=== PATIENT | male | born 1985 | race African-American/Black ===

== ENCOUNTER 2016-11-16 10:31 | Emergency (ER) | payer OTHER ==
[2016-11-16 10:38] VITALS: TEMP 97
--- NOTE | 2016-11-16 11:44 | ED ---
General Adult HPI - General Chief complaint: Recheck/Abnormal Lab/Rx Stated complaint: FACIAL PAIN Time Seen by Provider: 11/16/16 10:43 Source: patient, RN notes reviewed, old records reviewed Mode of arrival: ambulatory Limitations: no limitations - History of Present Illness Initial comments: This is a 31-year-old male to the ER for evaluation. This patient presents in regards to evaluation of recheck regarding facial mass. He states he had surgery for facial mass about 2013. Patient is currently return to ER for evaluation of recurrence of mass, patient has no symptoms, denies any swelling or dysphagia, no pain with swallowing or difficulty swallowing. Patient states his last couple days been concerned about his lack of follow-up patient is concern about coming back. He denies having any symptoms regarding this. Does admit about anxiety regarding the issue - Related Data Previous Rx's Medication Instructions Recorded Naproxen 500 mg PO Q12HR PRN #10 tab 02/06/16 Allergies Allergy/AdvReac Type Severity Reaction Status Date / Time No Known Allergies Allergy Verified 02/06/16 19:14 Review of Systems ROS Statement: Those systems with pertinent positive or pertinent negative responses have been documented in the HPI. ROS Other: All systems not noted in ROS Statement are negative. 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 Absent: scleral icterus, conjunctival injection, periorbital swelling ENT exam: Present: normal exam, mucous membranes moist Neck exam: Present: normal inspection. Absent: tenderness, meningismus, lymphadenopathy Respiratory exam: Present: normal lung sounds bilaterally. Absent: respiratory distress, wheezes, rales, rhonchi, stridor Cardiovascular Exam: Present: regular rate, normal rhythm, normal heart sounds. Absent: systolic murmur, diastolic murmur, rubs, gallop, clicks GI/Abdominal exam: Present: soft, normal bowel sounds. Absent: distended, tenderness, guarding, rebound, rigid Extremities exam: Present: normal inspection, full ROM, normal capillary refill. Absent: tenderness, pedal edema, joint swelling, calf tenderness Back exam: Present: normal inspection Neurological exam: Present: alert, oriented X3, CN II-XII intact Psychiatric exam: Present: normal affect, normal mood Skin exam: Present: warm, dry, intact, normal color. Absent: rash Course Vital Signs 11/16/16 10:35 Temperature 97.0 F L Pulse Rate 74 Respiratory 17 Rate Blood Pressure 139/88 O2 Sat by Pulse 98 Oximetry - Reevaluation(s) Reevaluation #1: 11/16/16 11:41 Patient is advised regarding normal CAT scan, follow-up with surgeon in the future as directed Medical Decision Making - Medical Decision Making 31 male to the ER with anxiety, concern over lack of follow-up postop surgery. This time patient has a recurrence. Patient will be discharged home - Radiology Data Radiology results: report reviewed (CT soft tissue neck is negative for acute disease), image reviewed Disposition Clinical Impression: Anxiety about health, Postoperative follow-up Disposition: HOME SELF-CARE Condition: Good Instructions: Normal Exam (ED) Referrals: None,Stated [Primary Care Provider] - 1-2 days
--- NOTE | 2016-11-16 12:28 | CT ---
EXAMINATION TYPE: CT soft tissue neck wo con DATE OF EXAM: 11/16/2016 HISTORY: Dysphasia COMPARISON: NONE CT DLP: 437.4 mGycm. Automated Exposure Control for Dose Reduction was Utilized. TECHNIQUE: CT scan of the neck is performed without contrast. FINDINGS: Lung apices are clear. Lack of IV contrast limits assessment for mass. Exam is significantl y limited. Artifact also noted which limits the exam. Parotid glands demonstrate surgical clips on the left whic h likely related to patient's history of previous surgery. Overall attenuation of the parotid glands appear symmetric bilaterally. There is asymmetry to the oropharynx on the left may be related to the uvula. Direct visualization could BE obtained. Visualized intraorbital and intracranial structures are symmetric. Assessment for adenopathy markedly limited due to lack of contrast. Shotty adenopathy scattered throughout the soft tissues of the neck Nasopharynx symmetric. Changes of chronic ethmoidal sinusitis noted. Airways patent. Vocal cords have a normal appearance. Residual thymic tissue in the anterior mediasti num. IMPRESSION: 1. Asymmetry of the oropharynx on the left correlate with direct visualization to exclude mucosal abn ormality. 2. Postsurgical changes involving the soft tissues of the left neck. Assessment for new mass without contrast as severely limited. Follow-up exam with contrast recommended or MRI. 3. Shotty adenopathy throughout the neck with the largest lymph node in the submental space on the le ft measuring 9 mm in short axis.
[2016-11-16 12:53] VITALS: BP 125/88; PULSE 66; RESP 18
== END 2016-11-16 12:52 | disposition home or self-care (01) ==
LOC: EC 10:31
DX: F41.9 Anxiety disorder, unspecified (principal); Z09 Encounter for follow-up examination after completed treatment for conditions other than malignant neoplasm; Z87.891 Personal history of nicotine dependence; Z98.890 Other specified postprocedural states
CPT/HCPCS: 70490; 99284

== ENCOUNTER 2017-06-12 10:23 | Emergency (ER) | payer OTHER ==
[2017-06-12 10:28] VITALS: PULSE 63; RESP 18
[2017-06-12] MEDS ORDERED: SODIUM CHLORIDE 0.9% 500 ML IV STA (10:39)
[2017-06-12] MEDS ORDERED: KETOROLAC 30 MG/ML 1 ML VIAL IVP STA ×2 (10:39→12:33)
[2017-06-12] MEDS ORDERED: SODIUM CHLORIDE 0.9% 1,000 ML IV STA ×2 (10:39→11:49)
--- NOTE | 2017-06-12 10:43 | ED ---
Abdominal Pain HPI - General Chief Complaint: Abdominal Pain Stated Complaint: ABDOMINAL PAIN Time Seen by Provider: 06/12/17 10:33 Source: patient, RN notes reviewed Mode of arrival: ambulatory Limitations: no limitations - History of Present Illness Initial Comments: This is a 31-year-old male with a benign past medical history states he started developing mid and upper abdominal pain 3 days ago. He states he was at work yesterday and got worse and is here today. He states it is achy-type pain midabdominal 7/10 severity. Nothing seems to make it better nothing seems to make it worse it is associated with sweats no nausea or vomiting. He's had no trouble with urination no bowel movement issues. No family history of gallbladder disease ulcers her appendix. He's had no prior abdominal surgeries. No history kidney stones. He does state that in the past he had a one-day episode similar to this but it resolved. MD Complaint: abdominal pain - Related Data Previous Rx's Medication Instructions Recorded Dicyclomine [Bentyl] 10 mg PO TID #10 capsule 06/12/17 Ibuprofen 800 mg PO Q6HR PRN #20 tablet 06/12/17 Allergies Allergy/AdvReac Type Severity Reaction Status Date / Time No Known Allergies Allergy Verified 06/12/17 10:39 Review of Systems ROS Statement: Those systems with pertinent positive or pertinent negative responses have been documented in the HPI. ROS Other: All systems not noted in ROS Statement are negative. 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 Absent: scleral icterus, conjunctival injection, periorbital swelling ENT exam: Present: normal exam, mucous membranes moist Neck exam: Present: normal inspection. Absent: tenderness, meningismus, lymphadenopathy Respiratory exam: Present: normal lung sounds bilaterally. Absent: respiratory distress, wheezes, rales, rhonchi, stridor Cardiovascular Exam: Present: regular rate, normal rhythm, normal heart sounds. Absent: systolic murmur, diastolic murmur, rubs, gallop, clicks GI/Abdominal exam: Present: soft, tenderness (Tenderness palpation over the mid abdomen some mild right and left lower quadrant tenderness and mild suprapubic tenderness no right upper quadrant or left upper quadrant tenderness no epigastric tenderness at this time.), normal bowel sounds. Absent: distended, guarding, rebound, rigid, bruit, pulsatile mass, hernia Rectal exam: Present: deferred Extremities exam: Present: normal inspection, full ROM, normal capillary refill. Absent: tenderness, pedal edema, joint swelling, calf tenderness Back exam: Present: normal inspection, CVA tenderness (L) (Mild tenderness over the left CVA with palpation.) Neurological exam: Present: alert, oriented X3, CN II-XII intact Psychiatric exam: Present: normal affect, normal mood Skin exam: Present: warm, dry, intact, normal color. Absent: rash Course Vital Signs 06/12/17 10:25 Temperature 97.1 F L Pulse Rate 63 Respiratory 18 Rate Blood Pressure 106/53 O2 Sat by Pulse 98 Oximetry Medical Decision Making - Medical Decision Making The patient was getting improvement I did discuss the findings with him he'll be discharged on appropriate medication including anti-inflammatories and antispasmodics. He'll be given today and tomorrow off from work. He is increase his oral fluids we did discuss this. - Lab Data Result diagrams: 06/12/17 10:12 06/12/17 10:12 Lab Results 06/12/17 06/12/17 06/12/17 Range/Units 10:12 10:12 10:12 WBC 6.4 (3.8-10.6) k/uL RBC 5.05 (4.30-5.90) m/uL Hgb 15.3 (13.0-17.5) gm/dL Hct 45.9 (39.0-53.0) % MCV 90.9 (80.0-100.0) fL MCH 30.2 (25.0-35.0) pg MCHC 33.2 (31.0-37.0) g/dL RDW 12.5 (11.5-15.5) % Plt Count 161 (150-450) k/uL Neutrophils % 58 % Lymphocytes % 26 % Monocytes % 6 % Eosinophils % 6 % Basophils % 0 % Neutrophils # 3.7 (1.3-7.7) k/uL Lymphocytes # 1.7 (1.0-4.8) k/uL Monocytes # 0.4 (0-1.0) k/uL Eosinophils # 0.4 (0-0.7) k/uL Basophils # 0.0 (0-0.2) k/uL PT (9.0-12.0) sec INR (<1.2) APTT (22.0-30.0) sec Sodium 143 (137-145) mmol/L Potassium 4.7 (3.5-5.1) mmol/L Chloride 109 H (98-107) mmol/L Carbon Dioxide 22 (22-30) mmol/L Anion Gap 12 mmol/L BUN 18 (9-20) mg/dL Creatinine 0.80 (0.66-1.25) mg/dL Est GFR (CKD-EPI)AfAm >90 (>60 ml/min/1.73 sqM) Est GFR (CKD-EPI)NonAf >90 (>60 ml/min/1.73 sqM) Glucose 91 (74-99) mg/dL Plasma Lactic Acid Dany 0.8 (0.7-2.0) mmol/L Calcium 9.8 (8.4-10.2) mg/dL Total Bilirubin 0.8 (0.2-1.3) mg/dL AST 42 (17-59) U/L ALT 72 (21-72) U/L Alkaline Phosphatase 69 (38-126) U/L Total Protein 6.9 (6.3-8.2) g/dL Albumin 4.3 (3.5-5.0) g/dL Amylase 66 (30-110) U/L Lipase 156 (23-300) U/L Urine Color Urine Appearance (Clear) Urine pH (5.0-8.0) Ur Specific [place] (1.001-1.035) Urine Protein (Negative) Urine Glucose (UA) (Negative) Urine Ketones (Negative) Urine Blood (Negative) Urine Nitrite (Negative) Urine Bilirubin (Negative) Urine Urobilinogen (<2.0) mg/dL Ur Leukocyte Esterase (Negative) Urine RBC (0-5) /hpf Urine WBC (0-5) /hpf Urine Mucus (None) /hpf 06/12/17 06/12/17 Range/Units 10:12 10:47 WBC (3.8-10.6) k/uL RBC (4.30-5.90) m/uL Hgb (13.0-17.5) gm/dL Hct (39.0-53.0) % MCV (80.0-100.0) fL MCH (25.0-35.0) pg MCHC (31.0-37.0) g/dL RDW (11.5-15.5) % Plt Count (150-450) k/uL Neutrophils % % Lymphocytes % % Monocytes % % Eosinophils % % Basophils % % Neutrophils # (1.3-7.7) k/uL Lymphocytes # (1.0-4.8) k/uL Monocytes # (0-1.0) k/uL Eosinophils # (0-0.7) k/uL Basophils # (0-0.2) k/uL PT 9.8 (9.0-12.0) sec INR 1.0 (<1.2) APTT 22.9 (22.0-30.0) sec Sodium (137-145) mmol/L Potassium (3.5-5.1) mmol/L Chloride (98-107) mmol/L Carbon Dioxide (22-30) mmol/L Anion Gap mmol/L BUN (9-20) mg/dL Creatinine (0.66-1.25) mg/dL Est GFR (CKD-EPI)AfAm (>60 ml/min/1.73 sqM) Est GFR (CKD-EPI)NonAf (>60 ml/min/1.73 sqM) Glucose (74-99) mg/dL Plasma Lactic Acid Dany (0.7-2.0) mmol/L Calcium (8.4-10.2) mg/dL Total Bilirubin (0.2-1.3) mg/dL AST (17-59) U/L ALT (21-72) U/L Alkaline Phosphatase (38-126) U/L Total Protein (6.3-8.2) g/dL Albumin (3.5-5.0) g/dL Amylase (30-110) U/L Lipase (23-300) U/L Urine Color Yellow Urine Appearance Clear (Clear) Urine pH 5.5 (5.0-8.0) Ur Specific [place] 1.027 (1.001-1.035) Urine Protein Trace H (Negative) Urine Glucose (UA) Negative (Negative) Urine Ketones Negative (Negative) Urine Blood Trace H (Negative) Urine Nitrite Negative (Negative) Urine Bilirubin Negative (Negative) Urine Urobilinogen <2.0 (<2.0) mg/dL Ur Leukocyte Esterase Negative (Negative) Urine RBC 1 (0-5) /hpf Urine WBC 2 (0-5) /hpf Urine Mucus Few H (None) /hpf - Radiology Data Radiology results: report reviewed (I did review all the imaging and reports evidence of a ileus possibly no other acute findings. I CAT scan no findings other than that of enteritis), image reviewed Disposition Clinical Impression: Enteritis, Abdominal pain Disposition: HOME SELF-CARE Condition: Good Instructions: Abdominal Pain (ED), Enteritis (ED) Prescriptions: Dicyclomine [Bentyl] 10 mg PO TID #10 capsule Ibuprofen 800 mg PO Q6HR PRN #20 tablet PRN Reason: Pain Referrals: None,Stated [Primary Care Provider] - 1-2 days
[2017-06-12 11:09] LABS: Basophils % (A) 0 %; Eosinophils # (A) 0.4 k/uL (0-0.7); Eosinophils % (A) 6 %; HCT 45.9 % (39.0-53.0); HGB 15.3 gm/dL (13.0-17.5); Lymphocytes # (A) 1.7 k/uL (1.0-4.8); Lymphocytes % (A) 26 %; MCH 30.2 pg (25.0-35.0); MCHC 33.2 g/dL (31.0-37.0); MCV 90.9 fL (80.0-100.0); Mean Platelet Volume 9.2; Monocytes # (A) 0.4 k/uL (0-1.0); Monocytes % (A) 6 %; Neutrophils # (A) 3.7 k/uL (1.3-7.7); Neutrophils % (A) 58 %; Platelet Count 161 k/uL (150-450); RBC 5.05 m/uL (4.30-5.90); RDW 12.5 % (11.5-15.5); WBC 6.4 k/uL (3.8-10.6)
[2017-06-12 11:11] LABS: Appearance,Urine Clear (Clear); Bilirubin,Urine Negative (Negative); Blood,Urine Trace (Negative); Color,Urine Yellow; Glucose,Urine (UA) Negative (Negative); Ketones,Urine Negative (Negative); Leukocyte Esterase,Urine Negative (Negative); Mucus,Urine Few /hpf; Nitrite,Urine Negative (Negative); PH, Urine 5.5 (5.0-8.0); Protein,Urine Trace (Negative); RBC,Urine 1 /hpf (0-5); Specific Gravity,Urine 1.027 (1.001-1.035); Urobilinogen,Urine <2.0 mg/dL (<2.0); WBC,Urine 2 /hpf (0-5)
[2017-06-12 11:13] LABS: Partial Thromboplastin Time 22.9 sec (22.0-30.0); Prothrombin Time 9.8 sec (9.0-12.0)
[2017-06-12 11:15] LABS: ALT 72 U/L (21-72); AST 42 U/L (17-59); Albumin 4.3 g/dL (3.5-5.0); Alkaline Phosphatase 69 U/L (38-126); Amylase 66 U/L (30-110); Anion Gap 12 mmol/L; Blood Urea Nitrogen 18 mg/dL (9-20); Calcium 9.8 mg/dL (8.4-10.2); Carbon Dioxide 22 mmol/L (22-30); Chloride 109 mmol/L (98-107); Glucose 91 mg/dL (74-99); Lipase 156 U/L (23-300); Potassium 4.7 mmol/L (3.5-5.1); Sodium 143 mmol/L (137-145); Total Bilirubin 0.8 mg/dL (0.2-1.3); Total Protein 6.9 g/dL (6.3-8.2)
--- NOTE | 2017-06-12 11:24 | XR ---
EXAMINATION TYPE: XR abdomen acute w cxr DATE OF EXAM: 06/12/2017 COMPARISON: Prior chest x-ray 02/06/2016 HISTORY: Abdominal pain, nausea and vomiting and diarrhea TECHNIQUE: Supine, upright, and frontal chest x-ray views of the abdomen and chest are obtained. FINDINGS: There is no evidence for pneumoperitoneum. Chest x-ray shows a stable appearance. There are air-fluid levels without bowel distention. No mass effects are seen. No unusual calcifications. IMPRESSION: Findings may represent underlying ileus or enteritis, follow-up as indicated.
--- NOTE | 2017-06-12 12:18 | CT ---
EXAMINATION TYPE: CT abdomen pelvis wo con DATE OF EXAM: 06/12/2017 COMPARISON: Plain film same date HISTORY: Patient complains of left flank pain, nausea, vomiting, diarrhea, and constipation x4 days. CT DLP: 233.6 mGycm Automated exposure control for dose reduction was used. TECHNIQUE: Helical acquisition of images from the lung bases through the pelvis. FINDINGS: lack of contrast and paucity of intra-abdominal fat could compromise sensitivity. LUNG BASES: No significant abnormality is appreciated. AORTA: No significant abnormality is appreciated. LIVER/GB: No significant abnormality is appreciated. PANCREAS: No significant abnormality is seen. SPLEEN: No significant abnormality is seen. ADRENALS: No significant abnormality is seen. KIDNEYS: Some mild increased density centrally within the kidney suggests medullary sponge kidney, th ere is no evident hydronephrosis or ureteral calcification. REPRODUCTIVE ORGANS: No significant abnormality is seen. URINARY BLADDER: No significant abnormality is seen. BOWEL: Fluid-filled loops of small and large bowel are scattered within the abdomen. Appendicitis is not evident. FREE AIR: No Free Air is visible. ASCITES: None visible. PELVIC ADENOPATHY: None visualized. RETROPERITONEAL ADENOPATHY: No Retroperitoneal Adenopathy visible. OSSEOUS STRUCTURES: No significant abnormality is seen. IMPRESSION: FINDINGS SUGGEST ENTERITIS, ADDITIONAL FINDINGS ABOVE. FOLLOW-UP INDICATED.
[2017-06-12 13:31] VITALS: BP 112/53; TEMP 97.5
== END 2017-06-12 13:31 | disposition home or self-care (01) ==
LOC: EC 10:23
DX: K52.9 Noninfective gastroenteritis and colitis, unspecified (principal); Z85.89 Personal history of malignant neoplasm of other organs and systems; Z87.891 Personal history of nicotine dependence; Z53.8 Procedure and treatment not carried out for other reasons
CPT/HCPCS: 99284; 96374; 96361; 36415; 80053; 82150; 83605; 83690; 85025; 85610; 85730; 81001; 74022; 74176; J1885

== ENCOUNTER 2017-08-13 09:21 | Emergency (ER) | payer OTHER ==
[2017-08-13 09:26] VITALS: BP 121/67; PULSE 77; RESP 16; TEMP 98
--- NOTE | 2017-08-13 09:56 | ED ---
Abdominal Pain HPI - General Chief Complaint: Abdominal Pain Stated Complaint: Hemroids Time Seen by Provider: 08/13/17 09:27 Source: patient, RN notes reviewed Mode of arrival: ambulatory Limitations: no limitations - History of Present Illness Initial Comments: Is a 31-year-old male presents emergency Department chief complaint of hemorrhoids. Patient states she's felt them in the past and states that they' re not going away this time. He states his been 2 weeks. He states that he tried some [id number] medication with no relief. Denies any bleeding. He states that he works out regularly and strains when he lifts things at work. He states he notices it worse. He states, 7 normal at 2 are not too soft. No dysuria no hematuria. Patient states she's never been evaluated by a surgeon for these. - Related Data Previous Rx's Medication Instructions Recorded Acetaminophen-Codeine 300-30mg 1 tab PO Q4H PRN #14 tablet 08/13/17 [Tylenol #3] Hydrocortisone [Anusol-Hc] 1 applic RECTAL BID #30 gm 08/13/17 Witch Rosa [Tucks Medicated Pads] 1 each TOPICAL QID #30 med..pad 08/13/17 Allergies Allergy/AdvReac Type Severity Reaction Status Date / Time No Known Allergies Allergy Verified 08/13/17 09:32 Review of Systems ROS Statement: Those systems with pertinent positive or pertinent negative responses have been documented in the HPI. ROS Other: All systems not noted in ROS Statement are negative. 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 Absent: scleral icterus, conjunctival injection, periorbital swelling Respiratory exam: Present: normal lung sounds bilaterally. Absent: respiratory distress, wheezes, rales, rhonchi, stridor Cardiovascular Exam: Present: regular rate, normal rhythm, normal heart sounds. Absent: systolic murmur, diastolic murmur, rubs, gallop, clicks GI/Abdominal exam: Present: soft, normal bowel sounds. Absent: distended, tenderness, guarding, rebound, rigid Rectal exam: Present: hemorrhoids (There is a thrombosed hemorrhoid with no active bleeding), tenderness Skin exam: Present: warm, dry, intact, normal color. Absent: rash Course Vital Signs 08/13/17 09:23 Temperature 98.0 F Pulse Rate 77 Respiratory 16 Rate Blood Pressure 121/67 O2 Sat by Pulse 98 Oximetry Medical Decision Making - Medical Decision Making 31-year-old male presented from for hemorrhoids. Patient was given Anusol, advised to use Tucks pads and sitz bath at home. He'll follow-up with surgeon. Return parameters were discussed. Disposition Clinical Impression: Hemorrhoid Disposition: HOME SELF-CARE Condition: Stable Instructions: Hemorrhoids (ED) Additional Instructions: Please return to the Emergency Department if symptoms worsen or any other concerns. Prescriptions: Acetaminophen-Codeine 300-30mg [Tylenol #3] 1 tab PO Q4H PRN #14 tablet PRN Reason: pain Hydrocortisone [Anusol-Hc] 1 applic RECTAL BID #30 gm Witch Rosa [Tucks Medicated Pads] 1 each TOPICAL QID #30 med..pad Is patient prescribed a controlled substance at d/c from ED?: Yes If prescribed controlled substance>3 days was MAPS reviewed?: No When asked, does pt state using other controlled substances?: No Referrals: None,Stated [Primary Care Provider] - 1-2 days Ashkan Carmichael DO [Doctor of Osteopathic Medicine] - 1-2 days Time of Disposition: 10:20
== END 2017-08-13 10:24 | disposition home or self-care (01) ==
LOC: EC 09:21
DX: K64.5 Perianal venous thrombosis (principal); Z87.891 Personal history of nicotine dependence
CPT/HCPCS: 99283

== ENCOUNTER 2017-11-13 11:38 | Emergency (ER) | payer OTHER ==
[2017-11-13 11:55] VITALS: BP 124/82; PULSE 71; RESP 18; TEMP 98.2
--- NOTE | 2017-11-13 13:05 | ED ---
General Adult HPI - General Chief complaint: Urogenital Stated complaint: INFLAMATION AND PAIN, MALE Time Seen by Provider: 11/13/17 12:14 Source: patient, RN notes reviewed Mode of arrival: ambulatory Limitations: no limitations - History of Present Illness Initial comments: This is a 32-year-old male who presents to the emergency department with chief complaint of rectal pain. Patient states that he has been dealing with hemorrhoids since he was 18 years old. Patient states that he was seen here in July given pain medication as well as a topical cream. He states that he then presented to [facility] last month and they prescribed stool softeners. Patient states over the past one month the rectal pain has worsened. He states it is difficult to sit or lift weights. He states that pain is worse after having a bowel movement. Denies any bloody stools. Denies fevers or chills, abdominal pain, nausea or vomiting. - Related Data Previous Rx's Medication Instructions Recorded Acetaminophen-Codeine 300-30mg 1 tab PO Q4H PRN #14 tablet 08/13/17 [Tylenol #3] Hydrocortisone [Anusol-Hc] 1 applic RECTAL BID #30 gm 08/13/17 Witch Rosa [Tucks Medicated Pads] 1 each TOPICAL QID #30 med..pad 08/13/17 Allergies Allergy/AdvReac Type Severity Reaction Status Date / Time No Known Allergies Allergy Verified 11/13/17 11:52 Review of Systems ROS Statement: Those systems with pertinent positive or pertinent negative responses have been documented in the HPI. ROS Other: All systems not noted in ROS Statement are negative. Past Medical History Past Medical History: No Reported History Additional Past Medical History / Comment(s): hemorrhoids History of Any Multi-Drug Resistant Organisms: None Reported Past Surgical History: No Surgical Hx Reported Additional Past Surgical History / Comment(s): TUMOR REMOVED FROM LEFT SIDE OF MOUTH 2013 Past Psychological History: No Psychological Hx Reported Smoking Status: Former smoker Past Alcohol Use History: Occasional Past Drug Use History: None Reported General Exam - General Exam Comments Initial Comments: General: Awake and alert, well-developed; in no apparent distress. HEENT: Head atraumatic, normocephalic. Pupils are equal, round and reactive to light. Extraocular movements intact. Oropharynx moist without erythema or exudate. Neck: Supple. Normal ROM. Cardiovascular: Regular rate and rhythm. No murmurs, rubs or gallops. Chest symmetrical. Respiratory: Lungs clear to auscultation bilaterally. No wheezes, rales or rhonchi. Normal respiratory effort with no use of accessory muscles. Abdomen: Soft, non-tender, non-distended. No rigidity, rebound or guarding. Musculoskeletal: Normal ROM, no tenderness bilateral upper and lower extremities. Ambulating normally. Skin: [place], warm and dry without rashes or lesions. Neurological: Alert and oriented x3. CN II-XII grossly intact. Speech is fluent and answers are appropriate. No focal neuro deficits. Psychiatric: Normal mood and affect. No overt signs of depression or anxiety noted. Limitations: no limitations Rectal exam: Present: normal inspection, tenderness (significant tenderness surrounding rectum). Absent: hemorrhoids, mass Course Vital Signs 11/13/17 11:52 Temperature 98.2 F Pulse Rate 71 Respiratory 18 Rate Blood Pressure 124/82 O2 Sat by Pulse 99 Oximetry Medical Decision Making - Medical Decision Making This is a 32-year-old male who presents to the emergency department with chief complaint of rectal pain. Patient reports being diagnosed with hemorrhoids for years now. He reports over the past month his rectal pain has increased in severity. On physical examination, no masses or hemorrhoids are identified. No evidence of an abscess. The patient has significant pain with palpation around the rectum. Case was discussed with attending physician, Dr. Fenton who also evaluated the patient. At this time, cause of rectal pain is unclear. Patient will be given contact information for referral to general surgery for an anal scope. Patient is in agreement with this. Vital signs are stable and he is in no acute distress. He will be discharged home at this time. All questions were answered. Disposition Clinical Impression: Rectal pain Disposition: HOME SELF-CARE Condition: Good Instructions: Rectal Pain (ED) Additional Instructions: Please follow up with general surgeon, Dr. Fuchs for further evaluation. Please follow up with primary care provider within 1-2 days. Return to emergency department if symptoms should worsen or any concerns arise. Is patient prescribed a controlled substance at d/c from ED?: No Referrals: Silke Santoro MD [Primary Care Provider] - 1-2 days Katelin Fuchs MD [STAFF PHYSICIAN] - 1-2 days Time of Disposition: 13:05
== END 2017-11-13 13:14 | disposition home or self-care (01) ==
LOC: EC 11:38
DX: K62.89 Other specified diseases of anus and rectum (principal); Z87.891 Personal history of nicotine dependence; Z87.898 Personal history of other specified conditions
CPT/HCPCS: 99283

== ENCOUNTER 2022-04-13 17:51 | Emergency (ER) | payer OTHER ==
[2022-04-13 18:06] VITALS: TEMP 98.1
[2022-04-13] MEDS ORDERED: dexAMETHasone 2 MG TAB PO STA (18:19)
[2022-04-13] MEDS ORDERED: LIDOCAINE VISCOUS 2% 15 ML CUP MUCOUS MEM ONE (19:17)
[2022-04-13] MEDS ORDERED: PENICILLIN V POTASSIUM 250 MG TAB PO STA (19:26)
[2022-04-13] MEDS ORDERED: ACET/COD 300 MG/30 MG STARTER PACK 6 TAB BTL PO STA (19:50)
--- NOTE | 2022-04-13 19:50 | ED ---
ENT HPI - General Chief complaint: ENT Stated complaint: Throat Pain Time Seen by Provider: 04/13/22 18:07 Source: patient, RN notes reviewed Mode of arrival: ambulatory Limitations: no limitations - History of Present Illness Initial comments: This is a 36-year-old male who presents to the emergency department for a sore throat. States that this has been present for the last 4 days. He is having difficulty swallowing due to this pain and he feels like he is having to adjust how he speaks. Denies any fevers, coughing, or sick contacts. Unsure if he has a history of strep throat. Denies any fevers, chills, cough, dyspnea, chest pain, palpitations, abdominal pain, nausea, vomiting, diarrhea, back pain, or headaches. MD complaint: sore throat Onset/Timin -: days(s) - Related Data Previous Rx's Medication Instructions Recorded Acetaminophen-Codeine 300-30mg 1 tab PO Q4H PRN #14 tablet 08/13/17 [Tylenol #3] Hydrocortisone [Anusol-Hc] 1 applic RECTAL BID #30 gm 08/13/17 witch Aleksandra [Tucks Medicated Pads] 1 each TOPICAL QID #30 med..pad 08/13/17 Penicillin V Potassium [Pen Vee K] 500 mg PO BID 10 Days #20 tablet 04/13/22 predniSONE 50 mg PO DAILY 5 Days #5 tab 04/13/22 Allergies Allergy/AdvReac Type Severity Reaction Status Date / Time No Known Allergies Allergy Verified 04/13/22 18:06 Review of Systems ROS Statement: Those systems with pertinent positive or pertinent negative responses have been documented in the HPI. ROS Other: All systems not noted in ROS Statement are negative. 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 Absent: tenderness, meningismus, lymphadenopathy Respiratory exam: Present: normal lung sounds bilaterally. Absent: respiratory distress, wheezes, rales, rhonchi, stridor Cardiovascular Exam: Present: regular rate, normal rhythm, normal heart sounds. Absent: systolic murmur, diastolic murmur, rubs, gallop, clicks Neurological exam: Present: alert, oriented X3, CN II-XII intact Psychiatric exam: Present: normal affect, normal mood Skin exam: Present: warm, dry, intact, normal color. Absent: rash Course Vital Signs 04/13/22 04/13/22 18:03 20:10 Temperature 98.1 F Pulse Rate 70 72 Respiratory 18 16 Rate Blood Pressure 135/89 129/78 O2 Sat by Pulse 99 98 Oximetry Medical Decision Making - Medical Decision Making This is a 36-year-old male who presents to the emergency department for a sore throat. Was pt. sent in by a medical professional or institution? @ -No Did you speak to anyone other than the patient for history? @ -His Did you review nursing and triage notes? @ -Yes, and I agree, it is accurate with regards to the patient's symptoms. Were old charts reviewed? @ -No Differential Diagnosis? @ Differential Sore Throat: -Strep pharyngitis, herpes zoster, COVID, influenza, GERD, allergic rhinitis, mononucleosis, this is not meant to be an all-inclusive list. What testing was considered but not performed? (CT, X-rays, U/S, labs)? Why? @ -None What meds were considered but not given? Why? @ -None Did you discuss the management of the patient with other professionals? @ -No Did you reconcile home meds? @ -No Was smoking cessation discussed for >3mins.? @ -No Was critical care preformed (if so, how long)? @ -No Were there social determinants of health that impacted care today? How? (Homelessness, low income, unemployed, alcoholism, drug addiction, transportati on, low edu. Level, literacy, decrease access to med. care, shelter, rehab)? @ -No Was there de-escalation of care discussed even if they declined? (Discuss DNR or withdrawal of care, Hospice)? @ -No What co-morbidities impacted this encounter? (DM, HTN, Smoking, COPD, CAD, Cancer, CVA, Hep., AIDS, mental health diagnosis, sleep apnea, morbid obesity)? @ -None Was patient admitted / discharged? @ -Discharged. Patient tested positive for strep throat. He was negative for Covid, influenza, and RSV. He was given a dose of Decadron and Pen-Vee K in the emergency department. We did try oral lidocaine, he states that this only offered a couple of seconds of relief and his pain then returned. Rx for a five-day course of prednisone and ten-day course of Pen-Vee K provided with dosing instructions reviewed. Advised he avoid [id number] anti-inflammatories such as ibuprofen with the prednisone. Recommended [id number] throat spray or lozenges for additional relief. Undiagnosed new problem with uncertain prognosis? @ -None Drug Therapy requiring intensive monitoring for toxicity (Heparin, Nitro, Insulin, Cardizem)? @ -None Were any procedures done? @ -None Diagnosis/symptom? @ -Strep pharyngitis Acute, or Chronic, or Acute on Chronic? @ -Acute Uncomplicated (without systemic symptoms) or Complicated (systemic symptoms)? @ -Uncomplicated Side effects of treatment? @ -None Exacerbation, Progression, or Severe Exacerbation] @ -Not applicable Poses a threat to life or bodily function? @ -No Return precautions reviewed in depth, the patient is instructed to return to the emergency department with any new, worsening, or concerning symptoms. Patient verbalized understanding. This case was discussed in detail with the attending ED physician, Dr. Arteaga. Presentation, findings, and treatment plan discussed in detail as well. - Lab Data Lab Results 04/13/22 04/13/22 Range/Units 18:26 18:26 Influenza Type A (PCR) Not Detected (Not Detectd) Influenza Type B (PCR) Not Detected (Not Detectd) RSV (PCR) Not Detected (Not Detectd) SARS-CoV-2 (PCR) Not Detected (Not Detectd) Group A Strep (PCR) DETECTED A (Not Detectd) Disposition Clinical Impression: Strep pharyngitis Disposition: HOME SELF-CARE Instructions (If sedation given, give patient instructions): Strep Throat (ED) Additional Instructions: Return to the emergency department with any new, worsening, or concerning symptoms. Take the antibiotic as prescribed for 10 days and the prednisone daily for 5 days. You can also try over the counter throat spray for a numbing effect. Follow up with your primary care provider in 1-2 days. Prescriptions: Penicillin V Potassium [Pen Vee K] 500 mg PO BID 10 Days #20 tablet predniSONE 50 mg PO DAILY 5 Days #5 tab Is patient prescribed a controlled substance at d/c from ED?: No Referrals: Nonstaff,Physician [Primary Care Provider] - 1-2 days
[2022-04-13 20:11] VITALS: BP 129/78; PULSE 72; RESP 16
== END 2022-04-13 20:13 | disposition home or self-care (01) ==
LOC: EC 17:51
DX: J02.0 Streptococcal pharyngitis (principal); Z20.822 Contact with and (suspected) exposure to COVID-19
CPT/HCPCS: 87651; 87636; 99283; J8540

== ENCOUNTER 2022-10-19 15:55 | Emergency (ER) | payer OTHER ==
[2022-10-19 16:00] VITALS: TEMP 98
[2022-10-19] MEDS ORDERED: SODIUM CHLORIDE 0.9% 500 ML 500 ML IV STA (16:08)
[2022-10-19] MEDS ORDERED: ONDANSETRON 4 MG/2 ML VIAL IVP STA (16:08)
--- NOTE | 2022-10-19 16:09 | ED ---
General Adult HPI - General Chief complaint: Neuro Symptoms/Deficit Stated complaint: left side weakness,chest pain Time Seen by Provider: 10/19/22 16:08 Source: patient Mode of arrival: wheelchair Limitations: no limitations - History of Present Illness Initial comments: Patient presents to the ED stating that he was at work about 30 minutes ago when he suddenly developed left arm and leg numbness and weakness. Patient states "I just don't feel right". Patient denies having any headache or pain at all to me. Patient admits to drinking "two seltzers" today. Patient denies any illicit drug use. Patient denies any other area of numbness or weakness. Patient denies trauma or injury, fever or chills, headache, visual changes, speech difficulty, neck/back/extremity pain, chest pain, dyspnea, palpitations, dizziness, nausea/vomiting, abdominal pain, or any other symptoms or complaints. "Code alteplase" was activated on patient's arrival to the ED. - Related Data Previous Rx's Medication Instructions Recorded Acetaminophen-Codeine 300-30mg 1 tab PO Q4H PRN #14 tablet 08/13/17 [Tylenol #3] Hydrocortisone [Anusol-Hc] 1 applic RECTAL BID #30 gm 08/13/17 witch Aleksandra [Tucks Medicated Pads] 1 each TOPICAL QID #30 med..pad 08/13/17 Penicillin V Potassium [Pen Vee K] 500 mg PO BID 10 Days #20 tablet 04/13/22 predniSONE 50 mg PO DAILY 5 Days #5 tab 04/13/22 Allergies Allergy/AdvReac Type Severity Reaction Status Date / Time No Known Allergies Allergy Verified 10/19/22 16:00 Review of Systems ROS Statement: Those systems with pertinent positive or pertinent negative responses have been documented in the HPI. ROS Other: All systems not noted in ROS Statement are negative. 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 Absent: tenderness Respiratory exam: Present: normal lung sounds bilaterally. Absent: respiratory distress, wheezes, rales, rhonchi, stridor Cardiovascular Exam: Present: regular rate, normal rhythm, normal heart sounds, other (Normal radial pulses bilaterally) GI/Abdominal exam: Present: soft. Absent: distended, tenderness, guarding Extremities exam: Absent: tenderness, pedal edema, calf tenderness Back exam: Present: normal inspection. Absent: tenderness Neurological exam: Present: alert, oriented X3, CN II-XII intact, other (No upper extremity drift; 4/5 strength in left upper and lower extremities; decreased sensation to light touch to left upper and lower extremities; NIH stroke scale score = 2) Psychiatric exam: Present: normal affect, normal mood Skin exam: Present: warm, dry, intact, normal color Course Vital Signs 10/19/22 10/19/22 15:58 16:04 Temperature 98.0 F Pulse Rate 90 96 Respiratory 18 20 Rate Blood Pressure 105/70 123/97 O2 Sat by Pulse 94 L Oximetry - Reevaluation(s) Reevaluation #1: 10/19/22 16:20 Patient became upset when ED nurse questioned him on his alcohol use today, then decided that he wanted to leave AMA without any testing. I attempted to calm patient down and to convince him to stay for testing given his symptoms and concern for possible stroke or other serious pathology. Patient is A and O 4 and completely coherent. Patient adamantly refused, stating that he still wanted to leave AMA. I explained to the patient the risks of leaving AMA, i ncluding further morbidity, paralysis and even in the worst-case situation. Patient was able to verbalize understanding of these risks, and still wanted to leave AMA. Patient to sign AMA paperwork. Patient was clearly explained return and follow-up instructions, and he was instructed to return to the ED should he develop new or worsening symptoms or change his mind. Patient was also instructed to follow up closely with his primary care provider. Patient states that he will be getting a ride home from the ED today. Medical Decision Making - Medical Decision Making Was pt. sent in by a medical professional or institution (Dr., PA, RN LONG TERM CARE, urgent care, hospital, or halfway...) When possible be specific @ -No Did you speak to anyone other than the patient for history (EMS, parent, family, police, friend...)? What history was obtained from this source @ -No Did you review nursing and triage notes (agree or disagree)? Why? @ -I reviewed and agree with nursing and triage notes Were old charts reviewed (outside hosp., previous admission, EMS record, old EKG, old radiological studies, urgent care reports/EKG's, halfway records)? Report findings @ -No old charts were reviewed Differential Diagnosis (chest pain, altered mental status, abdominal pain women, abdominal pain men, vaginal bleeding, weakness, fever, dyspnea, syncope, headache, dizziness, GI bleed, back pain, seizure, CVA, palpatations, mental health, musculoskeletal)? @ -Differential CVA Ischemic stroke, hemorrhagic stroke, brain tumor, atypical migraine, Wernicke's encephalopathy, seizure, multiple sclerosis, hypoglycemia, Guillain-Lopez, electrolytes disturbance, myasthenia gravis.... This is not meant to be an all- inclusive list EKG interpreted by me (3pts min.). @ -None done X-rays interpreted by me (1pt min.). @ -None done CT interpreted by me (1pt min.). @ -None done U/S interpreted by me (1pt. min.). @ -None done What testing was considered but not performed or refused? (CT, X-rays, U/S, labs)? Why? @ -Patient refused all testing and decided to leave [facility]. What meds were considered but not given or refused? Why? @ -None Did you discuss the management of the patient with other professionals (professionals i.e. STACEY Lowery, RN LONG TERM CARE, lab, RT, psych nurse, hospice social worker, media traffic manager, teacher, water resources technical officer, case management social worker)? Give summary @ -No Was smoking cessation discussed for >3mins.? @ -No Was critical care preformed (if so, how long)? @ -No Were there social determinants of health that impacted care today? How? (Homelessness, low income, unemployed, alcoholism, drug addiction, transporta tion, low edu. Level, literacy, decrease access to med. care, fpc, rehab)? @ -No Was there de-escalation of care discussed even if they declined (Discuss DNR or withdrawal of care, Hospice)? DNR status @ -No What co-morbidities impacted this encounter? (DM, HTN, Smoking, COPD, CAD, Cancer, CVA, ARF, Chemo, Hep., AIDS, mental health diagnosis, sleep apnea, morbid obesity)? @ -None Was patient admitted / discharged? Hospital course, mention meds given and route, prescriptions, significant lab abnormalities, going to OR and other pertinent info. @ -"Code alteplase" was activated on the patient's arrival to the ED. Patient became upset when ED nurse questioned him on his alcohol use today, then decided that he wanted to leave AMA without any testing. I attempted to calm patient down and to convince him to stay for testing given his symptoms and concern for possible stroke or other serious pathology. Patient is A and O 4 and completely coherent. Patient adamantly refused, stating that he still wanted to leave AMA. I explained to the patient the risks of leaving AMA, including further morbidity, paralysis and even in the worst-case situation. Patient was able to verbalize understanding of these risks, and still wanted to leave AMA. Patient to sign AMA paperwork. Patient was clearly explained return and follow-up instructions, and he was instructed to return to the ED should he develop new or worsening symptoms or change his mind. Patient was also instructed to follow up closely with his primary care provider. Patient states that he will be getting a ride home from the ED today. Undiagnosed new problem with uncertain prognosis? @ -No Drug Therapy requiring intensive monitoring for toxicity (Heparin, Nitro, Insulin, Cardizem)? @ -No Were any procedures done? @ -No Diagnosis/symptom? @ -Left-sided weakness and paresthesias Acute, or Chronic, or Acute on Chronic? @ -Acute Uncomplicated (without systemic symptoms) or Complicated (systemic symptoms)? @ -default Side effects of treatment? @ -No Exacerbation, Progression, or Severe Exacerbation? @ -No Poses a threat to life or bodily function? How? (Chest pain, [place], [place], pneumonia, PE, COPD, DKA, ARF, appy, cholecystitis, CVA, Diverticulitis, Homicidal, Suicidal, threat to staff... and all critical care pts) @ -No - Radiology Data Noncontrast head CT: CT angiography head/neck with IV contrast: Chest x-ray: Disposition Clinical Impression: Left-sided weakness, Paresthesias Disposition: LEFT AGAINST MEDICAL ADVICE Condition: Undetermined Instructions (If sedation given, give patient instructions): Paresthesia (ED), Stroke (DC) Additional Instructions: Return to the ER immediately should you develop new or worsening symptoms or change your mind. Follow up closely with your primary care provider. Is patient prescribed a controlled substance at d/c from ED?: No Referrals: None,Stated [Primary Care Provider] - 1-2 days Carlton Burnette MD [STAFF PHYSICIAN] - 1-2 days Time of Disposition: 16:20
[2022-10-19 18:03] VITALS: BP 111/83; PULSE 88; RESP 18
== END 2022-10-19 16:39 | disposition left against medical advice (07) ==
LOC: EC 15:55
DX: G81.94 Hemiplegia, unspecified affecting left nondominant side (principal); Z53.29 Procedure and treatment not carried out because of patient's decision for other reasons
CPT/HCPCS: 99284